=== PATIENT | female | born 1950 | race Caucasian/White ===

== ENCOUNTER 2018-11-30 14:46 | Emergency (ER) | payer MEDICARE ==
--- OUTSIDE RECORDS SUMMARY | 2018-11-30 14:56 | XMS REPORT | Continuity of Care Document ---
:1950 External Reference #:[id number] Author Name Tosha Staley M.D. 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 [phone] Problems Description No Information Available Social History Type Date Description Comments Sex Unknown ETOH Use Denies alcohol use Tobacco Use Start: Unknown Patient is a current smoker, smokes every day Smoking Status Reviewed: 04/02/17 Patient is a current smoker, smokes every day Allergies, Adverse Reactions, Alerts Active Allergies Reaction Severity Comments Date Tetracycline 04/21/2017 Inactive Allergies NKDA 09/16/2013 Medications Active Medications SIG Qnty Indications Ordering Date Provider Buspirone HCL 1 by mouth 90tabs M06.019 Tosha Stalye, 09/21/2018 7.5mg Tablets three times a M.D. day Cyclobenzaprine HCL take 1 tablet 30tabs R10.11 Tosha Staley, 08/24/2018 10mg by mouth three M.D. Tablets times a day if needed Zolpidem Tartrate 1 by mouth at 30tabs M54.16 Tosha Staley, 04/02/2016 5mg bedtime M.D. Tablets Hydrocodone-Acetaminoph tab 1 by mouth 120tabs Tosha Staley, 04/05/2014 en every -6hours M.D. 10-325mg Tablets as needed pain Medications Administered in Office Medication SIG Qnty Indications Ordering Provider Date B-12 Injection Tosha Staley M.D. 04/28/2018 Injection B-12 Injection Tosha Staley M.D. 01/26/2018 Injection B-12 Injection Tosha Staley M.D. 08/04/2017 Injection B-12 Injection Tosha Staley M.D. 07/01/2017 Injection B-12 Injection Tosha Staley M.D. 03/03/2017 Injection B-12 Injection Tosha Staley M.D. 10/31/2016 Injection B-12 Injection Tosha Staley M.D. 10/02/2016 Injection B-12 Injection Tosha Staley M.D. 07/09/2016 Injection B-Mónica Staley M.D. 04/30/2016 Injection Immunizations CPT Code Status Date Vaccine Lot # [id number] Given 10/11/2015 Influenza Vaccine (Fluvirin) 3 Years Of Age Or [id number] Older Q2037 Given 10/21/2013 Influenza Vaccine (Fluvirin) 3 Years Of Age Or [id number] Older Vital Signs Date Vital Result Comment 11/26/2018 10:02am BP Systolic 128 mmHg BP Diastolic 52 mmHg Heart Rate 85 /min Respiratory Rate 16 /min Height 62 inches 5'2" Weight 101.00 lb BMI (Body Mass Index) 18.5 kg/m2 O2 % BldC Oximetry 95 % 10/29/2018 11:39am BP Systolic 120 mmHg BP Diastolic 60 mmHg Heart Rate 72 /min Weight 102.00 lb O2 % BldC Oximetry 96 % Results Test Date Facility Test Result H/L Range Note CBS 06/23/2018 [facility] White Blood 9.1 K/uL Normal 3.1-10.7 1 W/Automated [address] Count Diff [place], [place] [address] [phone] Red Blood Count 4.41 M/uL Normal 3.90-5.40 Hemoglobin 13.3 gm/dL Normal 11.6-15.8 Hematocrit 40.4 % Normal 36.0-46.1 Mean Cell Volume 91.6 fl Normal 80.9-99.0 Mean Corpuscular HGB 30.2 pg Normal 25.9-32.7 Mean Corpuscular HGB Conc 32.9 g/dL Normal 30.8-34.3 Platelet Count 267 K/uL Normal 155-360 Red Cell Distri Width SD 44.9 fl Normal 36-47 Red Cell Distri Width %CV 13.2 % Normal 11.7-14.4 Mean Platelet Volume 9.9 fl Normal 8.9-12.4 Neut% 39.7 % Low 40.4-72.8 Lymph % 50.8 % High 20.0-42.0 [place] % 6.5 % Normal 4.3-13.2 Eo% 2.0 % Normal 0.0-6.6 Bas% 0.7 % Normal 0.0-1.1 Immature Grans 0.3 % Normal 0.0-5.0 NRBC % 0.0 /100WBC < 10/ 100 WBC Neut# 3.60 K/uL Normal 1.8-7.0 Lymph # 4.61 K/uL High 1.0-4.0 [place] # 0.59 K/uL Normal 0.3-0.9 Eos # 0.18 K/uL Normal 0.0-0.5 Baso # 0.06 K/uL Normal 0.0-0.1 Immature Grans Absolute 0.03 K/uL NRBC # 0.00 K/uL Comprehensive 06/23/2018 [facility] Glucose 89 mg/dL Normal 74-106 Metabolic Panel [address] [place], [place] [address] [phone] BUN 10 mg/dL Normal 7-18 Creatinine 0.5 mg/dL Low 0.6-1.3 Glom Filtration Rate, Estimate >60 mL/min >60 If >60 mL/min >60 2 BUN/Creat 20.0 ratio Sodium 133 mmol/L Low 136-145 Potassium 4.6 mmol/L Normal 3.5-5.1 Chloride 99 mmol/L Normal 98-107 Carbon Dioxide 28 mmol/L Normal 21-32 Anion Gap 6 mEq/L Low 8-16 Calcium 9.3 mg/dL Normal 8.5-10.1 Total Protein 7.8 g/dL Normal 6.4-8.2 Albumin 4.0 g/dL Normal 3.4-5.0 Globulin 3.8 g/dL Normal 1.9-4.3 Alb/Glob 1.1 ratio Bilirubin,Total 0.3 mg/dL Normal 0.2-1.0 Sgot/Ast 13 U/L Low 15-37 3 SGPT/Alt 14 U/L Normal 12-78 Alkaline Phosphatase 85 U/L Normal 45-117 LDL Cholesterol 06/23/2018 [facility] Cholesterol 231 mg/dL High <200 [address] [place] [address] [phone] Triglycerides 92 mg/dL <150 5 HDL Cholesterol 56 mg/dL >40 6 LDL-Cholesterol 157 mg/dL < 100 7 .TSH+Free T4 06/23/2018 [facility] Thyroid Stim 4.98 uIU/mL High 0.30-4.20 ([facility] [address] Hormone [facility]) [place], [place] [id number] [phone] Free T4 1.00 ng/dL Normal 0.76-1.46 1 R07.1 E78.2 K57.30 2 Note: Persistent reduction for 3 months or more in an eGFR <60 mL/min/1.73 m2 defines CKD. Patients with eGFR values >/=60 mL/min/1.73 m2 may also have CKD if evidence of persistent proteinuria is present. The original MDRD equation for estimated GFR is not valid for patients less than 18 years of age. Additional information may be found at www.kdoqi.org. 3 Values below the stated reference ranges of AST and ALT can be seen in normal populations. Clinical correlation is suggested. 4 Reference Guidelines*: Desirable: ........... < 200 mg/dL Borderline High: ..... 200-239 mg/dL High: ................ >= 240 mg/dL * The National Cholesterol Education Program (NCEP) 5 Reference Guidelines*: Normal: ............. < 150 mg/dL Borderline High: .... 150-199 mg/dL High: ............... 200-499 mg/dL Very High: .......... > 500 mg/dL * Source: National Cholesterol Education Program (NCEP) 6 Reference Guidelines*: Low HDL: ..... < 40 mg/dL Normal: ..... 40-60 mg/dL Desirable: ... > 60 mg/dL *The National Cholesterol Education Program(NCEP) 7 Reference Guidelines*: Optimal:........... <100 mg/dL Near Optimal....... 100-129 mg/dL Borderline High.... 130-159 mg/dL High............... 160-189 mg/dL Very High.......... >=190 mg/dL * Source: National Cholesterol Education Program (NCEP) Procedures Date Code Description Status 06/06/2016 091246148 Bone Mineral Density Test Completed Medical Devices Description No Information Available Encounters Type Date Location Provider Dx Diagnosis Office Visit 10/29/2018 Main Office Tosha Staley M.D. J44.9 Chronic obstructive 11:30a pulmonary disease, unspecified F41.1 Generalized anxiety disorder R10.11 Right upper quadrant pain M06.019 Rheumatoid arthritis w/o rheumatoid factor, unsp shoulder Office Visit 09/21/2018 1:30p Main Office Sushant Sanz6.019 Rheumatoid M.D. arthritis w/o rheumatoid factor, unsp shoulder J44.9 Chronic obstructive pulmonary disease, unspecified F41.1 Generalized anxiety disorder Office Visit 08/24/2018 2:15p Main Office Sushant Sanz6.019 Rheumatoid M.D. arthritis w/o rheumatoid factor, unsp shoulder J44.9 Chronic obstructive pulmonary disease, unspecified K21.9 Gastro-esophageal reflux disease without esophagitis R10.11 Right upper quadrant pain Office Visit 07/22/2018 11:00a Main Office Tosha Staley M06.019 Rheumatoid M.D. arthritis w/o rheumatoid factor, unsp shoulder J44.9 Chronic obstructive pulmonary disease, unspecified Office Visit 06/23/2018 11:15a Main Office Sushant Sanz6.019 Rheumatoid M.D. arthritis w/o rheumatoid factor, unsp shoulder J44.9 Chronic obstructive pulmonary disease, unspecified Assessments Date Code Description Provider 10/29/2018 J44.Osmar Chronic obstructive pulmonary disease, Tosha Staley M.D. unspecified 10/29/2018 F41.1 Generalized anxiety disorder Tosha Staley M.D. 10/29/2018 R10.11 Right upper quadrant pain Tosha Staley M.D. 10/29/2018 M06.Emily Rheumatoid arthritis without rheumatoid factor, Tosha Staley M.D. unspecified 09/21/2018 M06.019 Rheumatoid arthritis without rheumatoid factor, Tosha Staley M.D. unspecified 09/21/2018 J44.9 Chronic obstructive pulmonary disease, Tosha Staley M.D. unspecified 09/21/2018 F41.1 Generalized anxiety disorder Tosha Staley M.D. 08/24/2018 M06.019 Rheumatoid arthritis without rheumatoid factor, Tosha Staley M.D. unspecified 08/24/2018 J44.9 Chronic obstructive pulmonary disease, Tosha Staley M.D. unspecified 08/24/2018 K21.9 Gastro-esophageal reflux disease without Tosha Staley M.D. esophagitis 08/24/2018 R10.11 Right upper quadrant pain Tosha Staley M.D. 07/22/2018 M06.019 Rheumatoid arthritis without rheumatoid factor, Tosha Staley M.D. unspecified 07/22/2018 J44.9 Chronic obstructive pulmonary disease, Tosha Staley M.D. unspecified 06/23/2018 M06.019 Rheumatoid arthritis without rheumatoid factor, Tosha Staley M.D. unspecified 06/23/2018 J44.9 Chronic obstructive pulmonary disease, Tosha Staley M.D. unspecified Plan of Treatment No Information Available Functional Status Description No Information Available Mental Status Description No Information Available Referrals Description No Information Available
--- OUTSIDE RECORDS SUMMARY | 2018-11-30 14:56 | XMS REPORT | Continuity of Care Document ---
:1950 External Reference #:[id number] Author Name Tosha Staley M.D. 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 mcg/Act Aerosol Prednisone 2 by mouth 21tabs J44.9 Tosha Staley, 11/26/2018 10mg Tablets every day for 1 M.D. week then 1 by mouth every day for 1 week then stop Buspirone HCL 1 by mouth 90tabs M06.019 Tosha Staley, 09/21/2018 7.5mg Tablets three times a M.D. day Cyclobenzaprine HCL take 1 tablet 30tabs R10.11 Tosha Staley, 08/24/2018 10mg by mouth three M.D. Tablets times a day if needed Zolpidem Tartrate 1 by mouth at 30tabs M54.16 Tosha Staley, 04/02/2016 5mg bedtime M.D. Tablets Hydrocodone-Acetaminoph tab 1 by mouth 120tabs Tosha Staley, 04/05/2014 en every -6hours Solo 10-325mg Tablets as needed pain Medications Administered in Office Medication SIG Qnty Indications Ordering Provider Date B-12 Injection Tosha Staley M.D. 04/28/2018 Injection B-Mónica Staley M.D. 01/26/2018 Injection Lori Staley M.D. 08/04/2017 Injection Lori Staley M.D. 07/01/2017 Injection Sissy-Mónica Injection Tosha Staley M.D. 03/03/2017 Injection Sissy-Mónica Injection Tosha Staley M.D. 10/31/2016 Injection Lori Staley M.D. 10/02/2016 Injection Sissy-Mónica Staley M.D. 07/09/2016 Injection BRadha Staley M.D. 04/30/2016 Injection Immunizations CPT Code Status Date Vaccine Lot # [id number] Given 10/11/2015 Influenza Vaccine (Fluvirin) 3 Years Of Age Or [id number] Older Q2037 Given 10/21/2013 Influenza Vaccine (Fluvirin) 3 Years Of Age Or [id number] Older Vital Signs Date Vital Result Comment [...] Test Result H/L Range Note CBS 06/23/2018 [facility] White Blood 9.1 K/uL Normal 3.1-10.7 1 W/Automated [address] Count Diff [place], [place] [id number] [phone] Red Blood Count 4.41 M/uL Normal 3.90-5.40 [...] 40.4-72.8 Lymph % 50.8 % High 20.0-42.0 [place] % 6.5 % Normal 4.3-13.2 Eo% 2.0 % Normal 0.0-6.6 Bas% 0.7 % Normal 0.0-1.1 Immature Grans 0.3 % Normal 0.0-5.0 NRBC % 0.0 /100WBC < 10/ 100 WBC Neut# 3.60 K/uL Normal 1.8-7.0 Lymph # 4.61 K/uL High 1.0-4.0 [place] # 0.59 K/uL Normal 0.3-0.9 Eos # 0.18 K/uL Normal 0.0-0.5 Baso # 0.06 K/uL Normal 0.0-0.1 Immature Grans Absolute 0.03 K/uL NRBC # 0.00 K/uL Comprehensive 06/23/2018 [facility] Glucose 89 mg/dL Normal 74-106 Metabolic Panel [address] [place], [place] [address] [phone] BUN 10 mg/dL Normal 7-18 Creatinine 0.5 [...] 85 U/L Normal 45-117 LDL Cholesterol 06/23/2018 [facility] Cholesterol 231 mg/dL High <200 [address] [place], [place] [address] [phone] Triglycerides 92 mg/dL <150 5 HDL Cholesterol 56 mg/dL >40 6 LDL-Cholesterol 157 mg/dL < 100 7 .TSH+Free T4 06/23/2018 [facility] Thyroid Stim 4.98 uIU/mL High 0.30-4.20 ([place] & [address] [facility]) [place] [address] [phone] Free T4 1.00 ng/dL Normal 0.76-1.46 1 [...] (NCEP) Procedures Date Code Description Status 06/06/2016 [id number] Bone Mineral Density Test Completed Medical Devices Description No Information Available Encounters Type Date Location Provider Dx Diagnosis Office Visit 10/29/2018 Main Office Tosha Staley M.D. J44.9 Chronic obstructive 11:30a pulmonary disease, unspecified F41.1 Generalized anxiety disorder R10.11 Right upper quadrant pain M06.019 Rheumatoid arthritis w/o rheumatoid factor, unsp shoulder Office Visit 09/21/2018 1:30p Main Office Tosha Staley, M06.019 Rheumatoid M.D. arthritis w/o rheumatoid factor, unsp shoulder J44.9 Chronic obstructive pulmonary disease, unspecified F41.1 Generalized anxiety disorder Office Visit 08/24/2018 2:15p Main Office Tosha Staley M06.019 Rheumatoid M.D. arthritis w/o rheumatoid factor, unsp shoulder J44.9 Chronic obstructive pulmonary disease, unspecified K21.9 Gastro-esophageal reflux disease without esophagitis R10.11 Right upper quadrant pain Office Visit 07/22/2018 11:00a Main Office Tosha Staley M06.019 Rheumatoid M.D. arthritis w/o rheumatoid factor, unsp shoulder J44.9 Chronic obstructive pulmonary disease, unspecified Office Visit 06/23/2018 11:15a Main Office Tosha Staley M06.019 Rheumatoid M.D. arthritis w/o rheumatoid factor, unsp shoulder J44.9 Chronic obstructive pulmonary disease, unspecified Assessments Date Code Description Provider 11/26/2018 J44.9 Chronic obstructive pulmonary disease, Tosha Staley M.D. unspecified 11/26/2018 F41.1 Generalized anxiety disorder Tosha Staley M.D. 11/26/2018 M06.019 Rheumatoid arthritis without rheumatoid factor, Tosha Staley M.D. unspecified 10/29/2018 J44.9 Chronic obstructive pulmonary disease, Tosha Staley M.D. unspecified 10/29/2018 F41.1 Generalized anxiety disorder Tosha Staley M.D. 10/29/2018 R10.11 Right upper quadrant pain Tosha Staley M.D. 10/29/2018 M06.019 Rheumatoid arthritis without rheumatoid factor, Tosha Staley M.D. unspecified 09/21/2018 M06.019 Rheumatoid arthritis without rheumatoid factor, Tosha Staley M.D. unspecified 09/21/2018 J44.9 Chronic obstructive pulmonary disease, Tosha Staley M.D. unspecified 09/21/2018 F41.1 Generalized anxiety disorder Tosha Stalye M.D. 08/24/2018 M06.019 Rheumatoid arthritis without rheumatoid factor, Tosha Staley M.D. unspecified 08/24/2018 J44.9 Chronic obstructive pulmonary disease, Tosha Staley M.D. unspecified 08/24/2018 K21.9 Gastro-esophageal reflux disease without Tosha Staley M.D. esophagitis 08/24/2018 R10.11 Right upper quadrant pain Tosha Staley M.D. 07/22/2018 M06.Emily Rheumatoid arthritis without rheumatoid factor, Tosha Staley M.D. unspecified 07/22/2018 J44.9 Chronic obstructive pulmonary disease, Tosha Staley M.D. unspecified 06/23/2018 M06.019 Rheumatoid arthritis without rheumatoid factor, Tosha Staley M.D. unspecified 06/23/2018 J44.9 Chronic obstructive pulmonary disease, Tosha Staley M.D. unspecified Plan of Treatment Future Appointment(s):12/29/2018 11:30 am - Tosha Staley M.D. at Main Office Functional Status Description No Information Available Mental Status Description No Information Available Referrals Description No Information Available
--- OUTSIDE RECORDS SUMMARY | 2018-11-30 14:57 | XMS REPORT | Continuity of Care Document ---
:1950 External Reference #:[id number] Author Name Tosha Staley M.D. 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 Problems Description No Information Available Social History [...] Vaccine (Fluvirin) 3 Years Of Age Or [id number] Older Q2037 Given 10/21/2013 Influenza Vaccine (Fluvirin) 3 Years Of Age Or [id number] Older Vital Signs Date Vital Result Comment 10/29/2018 11:39am BP Systolic 120 mmHg BP Diastolic 60 mmHg Heart Rate 72 /min Weight 102.00 lb O2 % BldC Oximetry 96 % 09/21/2018 1:33pm BP Systolic 149 mmHg BP Diastolic 76 mmHg Heart Rate 78 /min Respiratory Rate 81 /min Weight 103.00 lb Results Test Date Facility Test Result H/L Range Note CBS 06/23/2018 [facility] White Blood 9.1 K/uL Normal 3.1-10.7 1 W/Automated [address] Count Diff [place], [place] [address] [phone] Red Blood Count 4.41 M/uL Normal 3.90-5.40 [...] 40.4-72.8 Lymph % 50.8 % High 20.0-42.0 [place] % 6.5 % Normal 4.3-13.2 Eo% 2.0 % Normal 0.0-6.6 Bas% 0.7 % Normal 0.0-1.1 Immature Grans 0.3 % Normal 0.0-5.0 NRBC % 0.0 /100WBC < 10/ 100 WBC Neut# 3.60 K/uL Normal 1.8-7.0 Lymph # 4.61 K/uL High 1.0-4.0 [place] # 0.59 K/uL Normal 0.3-0.9 Eos # 0.18 K/uL Normal 0.0-0.5 Baso # 0.06 K/uL Normal 0.0-0.1 Immature Grans Absolute 0.03 K/uL NRBC # 0.00 K/uL Comprehensive 06/23/2018 [facility] Glucose 89 mg/dL Normal 74-106 Metabolic Panel [address] [place] [address] [phone] BUN 10 mg/dL Normal 7-18 Creatinine 0.5 [...] 85 U/L Normal 45-117 LDL Cholesterol 06/23/2018 [facility] Cholesterol 231 mg/dL High <200 [address] [place] [address] [phone] Triglycerides 92 mg/dL <150 5 HDL Cholesterol 56 mg/dL >40 6 LDL-Cholesterol 157 mg/dL < 100 7 .TSH+Free T4 06/23/2018 [facility] Thyroid Stim 4.98 uIU/mL High 0.30-4.20 ([place] & [address] Hormone [facility] [place]) [place] [address] [phone] Free T4 1.00 ng/dL Normal 0.76-1.46 1 [...] (NCEP) Procedures Date Code Description Status 06/06/2016 [id number] Bone Mineral Density Test Completed Medical Devices Description No Information Available Encounters Type Date Location Provider Dx Diagnosis Office Visit 09/21/2018 Main Office Tosha Staley M.D. M06.019 Rheumatoid arthritis 1:30p w/o rheumatoid factor, unsp shoulder J44.9 Chronic [...] Chronic obstructive pulmonary disease, unspecified Office Visit 05/26/2018 3:00p Main Office Remberto Sanz44.9 Chronic obstructive M.D. pulmonary disease, unspecified M06.019 Rheumatoid arthritis w/o rheumatoid factor, unsp shoulder K21.9 Gastro-esophageal reflux disease without esophagitis R07.1 Chest pain on breathing Assessments Date Code Description Provider 10/29/2018 J44.9 Chronic obstructive pulmonary disease, Tosha [...] obstructive pulmonary disease, Tosha Staley M.D. unspecified 05/26/2018 J44.9 Chronic obstructive pulmonary disease, Tosha Staley M.D. unspecified 05/26/2018 M06.019 Rheumatoid arthritis without rheumatoid factor, Tosha Staley M.D. unspecified 05/26/2018 K21.9 Gastro-esophageal reflux disease without Tosha Staley M.D. esophagitis 05/26/2018 R07.1 Chest pain on breathing Tosha Staley M.D. Plan of Treatment Future Appointment(s):11/26/2018 10:00 am - Tosha Staley M.D. at Main Office Functional Status Description No Information Available Mental Status Description No Information Available Referrals Description No Information Available
[2018-11-30 15:58] VITALS: BP 168/67
--- NOTE | 2018-11-30 16:15 | UC ---
Throat Pain/Nasal Teja HPI - HPI Summary HPI Summary: 68 y/o female presents to the urgent care c/o nasal congestion, yellowish nasal discharge w/ moderate PND, productive cough and sore throat for the past week. Pt reports she has seen by her PCP on 11/26/2018 and Dx w/ Viral URI and advised symptomatic treatment. Pt is a heavy every day smoker and last night she had sinus pain and worse congestion and cough. This morning she developed mild wheezing, B/L ear pressure. Pt has been taking Nyquill and Dayquill PO to alleviate symptoms w/o any improvement. Pt denies fever, SOB, dizziness, visual changes, chest pain, abdominal pain, N/V/d. She has albuterol neb treatment at home, but she has never been Dx w/ COPD - History of Current Complaint Chief Complaint: UCRespiratory Stated Complaint: SINUS COMPLAINT, ST Time Seen by Provider: 11/30/18 16:14 Hx Obtained From: Patient Onset/Duration: Gradual Onset, Lasting Weeks - 1 week, Still Present, Worse Since - this morning w/ mild wheezing Severity: Moderate Pain Intensity: 4 - sinus pain and sore throat Pain Scale Used: 0-10 Numeric Cough: Nonproductive Associated Signs & Symptoms: Positive: Wheezing - mild, Sinus Discomfort, Nasal Discharge - yellowish. Negative: Fever - Epiglottits Risk Factors Epiglottis Risk Factors: Negative - Allergies/Home Medications Allergies/Adverse Reactions: Allergies Allergy/AdvReac Type Severity Reaction Status Date / Time tetracycline Allergy Hives Verified 11/30/18 15:50 PMH/Surg Hx/FS Hx/Imm Hx Previously Healthy: Yes Respiratory History: COPD - Surgical History Surgical History: Yes Surgery Procedure, Year, and Place: hysterectomy 2015 - Family History Known Family History: Positive: Hypertension - Social History Occupation: Retired Lives: With Family Alcohol Use: None Substance Use Type: None Smoking Status (MU): Light Every Day Tobacco Smoker Type: Cigarettes Amount Used/How Often: 1/2 PPD Household Exposure Type: Cigarettes Review of Systems All Other Systems Reviewed And Are Negative: Yes Constitutional: Positive: Negative Skin: Positive: Negative Eyes: Positive: Negative ENT: Positive: Sore Throat, Nasal Discharge - yellowish, Sinus Congestion, Sinus Pain/Tenderness, Other - moderate yellowish PND Respiratory: Positive: Cough - dry, Other - mild wheezing Cardiovascular: Positive: Negative Gastrointestinal: Positive: Negative Genitourinary: Positive: Negative Motor: Positive: Negative Neurovascular: Positive: Negative Musculoskeletal: Positive: Negative Neurological: Positive: Negative Psychological: Positive: Negative Is Patient Immunocompromised?: No Physical Exam - Summary Physical Exam Summary: Vitals: reviewed General: Well developed, well-nourished male patient with NAD. Head and face: Normocephalic and atraumatic, Positive tenderness over the frontal and maxillary sinuses.. Eyes: PERRLA, EOMI x 2. Normal conjunctiva. No eye discharge. ENT: Ears and TM with normal limits. Nose: edematous and erythematous nasal mucosa with with yellowish discharge and erythematous mucosa. Pharynx with erythema, no exudate. Yellowish PND Neck: Supple, no JVD, no carotid bruits and no lymphadenopathy. Chest: no orthopnea or dyspnea. Able to speak in full sentences, no retractions or accessory muscle use, no tripod position, infant- no grunting, stridor, or head bobbing. no rales, no rhonchi, posterior upper lung w/ mild wheezing CVS: RRR, S1 and S2 present no murmurs or gallops appreciated. Abdomen: soft nontender with positive bowel sounds. Extremities: no edema noted. Neuro: WNL. Skin: warm and dry Triage Information Reviewed: Yes Vital Signs: Initial Vital Signs Temp 98.9 F 11/30/18 15:51 Pulse 76 11/30/18 15:51 Resp 16 11/30/18 15:51 BP 168/67 11/30/18 15:51 Pulse Ox 97 11/30/18 15:51 Throat Pain/Nasal Course/Dx - Course Course Of Treatment: 68 y/o female presents to the urgent care c/o nasal congestion, yellowish nasal discharge w/ moderate PND, productive cough and sore throat for the past week. Pt reports she has seen by her PCP on 11/26/2018 and Dx w/ Viral URI and advised symptomatic treatment. Pt is a heavy every day smoker and last night she had sinus pain and worse congestion and cough. This morning she developed mild wheezing, B/L ear pressure. Pt has been taking Nyquill and Dayquill PO to alleviate symptoms w/o any improvement. Pt denies fever, SOB, dizziness, visual changes, chest pain, abdominal pain, N/V/d. She has albuterol neb treatment at home, but she has never been Dx w/ COPD. Hx obtained, Pt is hemodynamically stable, A&OX3, O2sat: 97%. Pt w/ acute bacterial sinusitis and mild posterior upper lung mild wheezing on examination. Pt declines Duo neb treatment and states she will start Tx at home. Pt with 1 week of symptoms getting worse. Pt Rx Amoxicillin PO and flonase nasal spray. Albuterol inhaler to alleviate mild wheezing. Manual BP:157/76. Pt's BP still elevated today advised to decrease salt in diet, monitor BP and f/u with PCP for further management. Discharge instructions explained to Pt. Advised to Return to the clinic or PCP if symptoms do not improve.Pt understood and agreed with plan of care. Left clinic ambulating and hemodynamically stable. - Differential Dx/Diagnosis Differential Diagnosis/HQI/PQRI: Influenza, Laryngitis, Sinusitis, URI, Other - bronchitis, COPD, Provider Diagnosis: Acute bacterial sinusitis, Wheezing, Elevated BP without diagnosis of hypertension Discharge ED - Sign-Out/Discharge Documenting (check all that apply): Patient Departure - D/C home All imaging exams completed and their final reports reviewed: No Studies - Discharge Plan Condition: Stable Disposition: HOME Prescriptions: Albuterol HFA INHALER* [Ventolin HFA Inhaler*] 1 - 2 puff INH Q6H PRN #1 mdi PRN Reason: Wheezing Amoxicillin PO (*) [Amoxicillin 500 MG CAP*] 500 mg PO Q12H #14 cap Fluticasone NASAL SPRAY 50MCG* [Flonase NASAL SPRAY 50MCG*] 2 spray BOTH NARES DAILY #1 btl Patient Education Materials: Sinusitis (ED) Referrals: Tosha Staley MD [Primary Care Provider] - 3 Days Additional Instructions: 1- Please increase fluid intake and rest. take full course of antibiotics to avoid resistance. Take yogurts w/ probiotics or Culturelle to protect your GI system 2-Use Flonase as directed to help drain fluid. Also buy saline drops to clear sinuses 3-Use albuterol inhaler or due the Nebulizer treatment you have at home to alleviate mild wheezing 4-Please f/u w/ your PCP in 3 days if symptoms do not improve for further management and treatment 5-Your BP is elevated today. Please take your BP medications and decrease salt in your diet, monitor BP and if it continues to be elevated please f/u with your PCP for further management. If you develop chest pain, dizziness, visual disturbances, SOB, or severe [place] please go immediately to the ER for further management - Billing Disposition and Condition Condition: STABLE Disposition: Home
== END 2018-11-30 16:54 | disposition home or self-care (01) ==
LOC: UCCORT 14:46
DX: J01.90 Acute sinusitis, unspecified (principal); B96.89 Other specified bacterial agents as the cause of diseases classified elsewhere; R03.0 Elevated blood-pressure reading, without diagnosis of hypertension; F17.210 Nicotine dependence, cigarettes, uncomplicated; R05 Cough; J44.9 Chronic obstructive pulmonary disease, unspecified; Z88.1 Allergy status to other antibiotic agents
CPT/HCPCS: 99212; G0463